=== PATIENT | female | born 1995 | race Caucasian/White ===

== ENCOUNTER → 2021-05-05 | Outpatient (CLI) | payer BC | LOC: DIA.ED 08:33 | DX: O24.419 Gestational diabetes mellitus in pregnancy, unspecified control (principal); I10 Essential (primary) hypertension | CPT/HCPCS: G0108 ==

== ENCOUNTER → 2021-05-26 | Outpatient (CLI) | payer BC | LOC: DIA.ED 08:08 | DX: O24.419 Gestational diabetes mellitus in pregnancy, unspecified control (principal) | CPT/HCPCS: G0108 ==

== ENCOUNTER 2021-06-20 07:49 | Inpatient (IN) | payer BC ==
[2021-06-20] VITALS (14 sets, daily range): BP systolic 81–177; BP diastolic 49–94; PULSE 69–108; TEMP 97.8–99
[~2021-06-20] VITALS: Ht 170.2 cm; Wt 101.8 kg
--- NOTE | 2021-06-20 07:55 | NUR ---
Pt arrived on unit ambulatory and with complaints of contractions and possible ROM. Pt reports contractions since 0500 and possible ROM at 0630 with clear fluid. EFM and toco monitors started. Vital signs WNL. SVE done with positive amnio-trace. Dr. Martinez on the unit. Orders for labor admission received. FHR tracing reviewed.
--- NOTE | 2021-06-20 08:35 | NUR ---
0835- Dr. Martinez at the bedside. SVE done complete. Pt set up for delivery. 0836- Pushing instructions reviewed and pushing started. 0921- of viable male . [place] placed on mom's abdomen. Care of the given to nursery RN at the bedside. 0926- of placenta. Pitocin started at 333ml/hr per order and protocol. Fundus firm and lochia WNL.
[2021-06-20 08:37] LABS: BASO % 0.3 % (0.0-2.0); EOS % 0.1 % (0.0-4.0); GRAN % 80.3 % (42.2-75.2); HEMATOCRIT 38.1 % (37.0-47.0); HEMOGLOBIN 13.1 g/dl (12.5-16.0); LYMPH # 1.9 K/mm3 (1.2-3.4); MEAN CELL VOLUME 83 fl (80.0-100.0); MEAN CORPUSCULAR HEMOGLOBIN 29 pg (27-31); MEAN CORPUSCULAR HGB CONC 34 g/dl (33.0-37.0); MEAN PLATELET VOLUME 9.9 fl (7.4-10.4); MONO # 0.6 K/mm3 (0.1-0.6); MONO % 4.7 % (1.7-9.3); PLATELET COUNT 300 K/mm3 (130-400); REDCELL DISTRIBUTION WIDTH-CV 12.6 % (11.5-14.5)
[2021-06-20] MEDS ORDERED: DIABETA 5MG5 MG/TAB PO (10:46)
[2021-06-20] MEDS ORDERED: PRENATAL (10:46)
--- NOTE | 2021-06-20 11:45 | NUR ---
Pt up to the bathroom with stand-by assist and without complication. Pt was not able to void at this time. Oriana-care done. Pt transferred to room 212 ambulatory. Oriented to room, bed and call light within reach. Plan of care reviewed with pt and at the bedside.
[2021-06-21 00:20] VITALS: BP 121/74; PULSE 81; TEMP 98.5
[2021-06-21 04:00] VITALS: BP 105/60; PULSE 76; TEMP 98.6
[2021-06-21 08:00] VITALS: BP 108/54; PULSE 80; TEMP 98.2
--- NOTE | 2021-06-21 10:30 | NUR ---
Rests in bed, alert. Ibuprofen 600 mg, tylenol 1000 mg given as ordered.
[2021-06-21] MEDS ORDERED: IBU600 MG PO (13:23)
[2021-06-21 16:15] VITALS: BP 128/69; PULSE 78; TEMP 98.1
[2021-06-21 21:36] VITALS: BP 107/55; PULSE 72; TEMP 97.9
[2021-06-22 08:45] VITALS: BP 127/73; PULSE 89; TEMP 97.9
== END 2021-06-22 12:41 | disposition home or self-care (01) | DRG 805 ==
LOC: LDRO 07:49 → LDR 08:16 → OB 12:08
PROVIDERS: Obstetrics & Gynecology; ADMIT Obstetrics & Gynecology
PROC: 10E0XZZ Delivery of Products of Conception, External Approach (ICD-10-PCS; principal; 2021-06-20)
PROC: 0KQM0ZZ Repair Perineum Muscle, Open Approach (ICD-10-PCS; 2021-06-20)
PROC: 0W8NXZZ Division of Female Perineum, External Approach (ICD-10-PCS; 2021-06-20)
DX: O24.429 Gestational diabetes mellitus in childbirth, unspecified control (principal); O60.14X0 Preterm labor third trimester with preterm delivery third trimester, not applicable or unspecified; Z37.0 Single live birth; Z3A.36 36 weeks gestation of pregnancy; O70.1 Second degree perineal laceration during delivery; Z23 Encounter for immunization
CPT/HCPCS: J2590; J7120

== ENCOUNTER → 2022-02-19 | Outpatient (CLI) | payer BC ==
[~2022-02-19] MED LIST: DIABETA 5MG5 MG/TAB PO; IBU600 MG PO; PRENATAL
== END ==
LOC: COL.RAD 07:52
DX: R79.89 Other specified abnormal findings of blood chemistry (principal)